=== PATIENT | female | born 1975 | race Caucasian/White ===

== ENCOUNTER 2024-06-17 12:53 | Emergency (ER) | payer SELFPAY ==
[~2024-06-17] VITALS: Ht 167.6 cm; Wt 107.6 kg
[2024-06-17 12:59] VITALS: BP 130/84; PULSE 112; TEMP 98.4; O2SAT 95
[2024-06-17] MEDS ORDERED: CEPH-585 PO (14:32)
[2024-06-17] MEDS ORDERED: SULF1TAB49 PO (14:32)
[2024-06-17] MEDS: CefTRIAXone 1000mg IM Kit (w/lidocaine diluent) IM ONE (14:40)
[2024-06-17] MEDS: sulfamethoxazole/trimethoprim DS (800/160mg) tablet PO ONE (14:41)
[2024-06-17 14:44] VITALS: RESP 17
== END 2024-06-17 14:56 | disposition home or self-care (01) ==
LOC: ER 12:53
DX: L03.116 Cellulitis of left lower limb (principal)
CPT/HCPCS: 96372; 99283; J0696; A6258